=== PATIENT | male | born 1970 | race Caucasian/White ===

== ENCOUNTER 2021-03-29 22:09 | Emergency (ER) | payer BC ==
[2021-03-30] MEDS ORDERED: NA CHLORIDE 0.9% 1,000 ML ONE (00:45)
[2021-03-30 00:53] LABS: Absolute Lymphocytes (CBC) 0.7 K/uL (0.7-4.9); Basophils % 0.4 % (0-1.3); Hematocrit 44.6 % (39.6-49.0); Lymphocytes % 12.4 % (15.3-44.8); MPV 8.2 fL (7.6-11.3); RBC Red Blood Cell Count 4.77 M/uL (4.33-5.43)
--- NOTE | 2021-03-30 00:57 | ER ---
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 Coronavirus screen: Ebola Screen: Patient negative for fever greater than or equal to 101.5 degrees Fahrenheit, and additional compatible Ebola Virus Disease symptoms Patient denies exposure to infectious person. Patient denies travel to an Ebola-affected area in the 21 days before illness onset. No symptoms or risks identified at this time. Initial Sepsis Screen: Does the patient meet any 2 criteria? No. Patient's initial sepsis screen is negative. Does the patient have a suspected source of infection? No. Patient's initial sepsis screen is negative. Risk Assessment: Do you want to hurt yourself or someone else? Patient reports no desire to harm self or others. Onset of symptoms was March 19, 2021. 23:01 Method Of Arrival: Wheelchair iw 23:01 Acuity: YANNI 3 iw Historical: - Allergies: 23:07 No Known Allergies; iw - Home Meds: 23:07 None [Active]; iw - PMHx: 23:07 None; iw - PSHx: 23:07 None; iw - Immunization history:: Adult Immunizations Client reports having NOT received the Covid vaccine. - Social history:: Smoking status: . Screenin:52 Abuse screen: Denies threats or abuse. Nutritional screening: No deficits noted. em Tuberculosis screening: No symptoms or risk factors identified. Fall Risk None identified. Assessment: 03/30 00:30 General: Appears uncomfortable, Behavior is calm, cooperative. Pain: Complains of pain em in everywhere. Neuro: Level of Consciousness is awake, alert, obeys commands, Oriented to person, place, time, situation, Appropriate for age. Cardiovascular: Capillary refill < 3 seconds Patient's skin is warm and dry. Respiratory: Airway is patent Respiratory effort is even, unlabored, Respiratory pattern is regular, symmetrical. Derm: Skin is intact, is healthy with good turgor, Skin is pink, warm \T\ dry. Musculoskeletal: Capillary refill < 3 seconds, Range of motion: intact in all extremities. 01:25 Reassessment: initiated [facility] [place], instructed to reports any chest pain, shortness of em breath or any other weird symptoms, pt verbalizes understanding. 01:40 Reassessment: Patient appears in no apparent distress at this time. No changes from em previously documented assessment. 02:12 Reassessment: Patient appears in no apparent distress at this time. Patient and/or em family updated on plan of care and expected duration. Pain level reassessed. Patient is alert, oriented x 3, equal unlabored respirations, skin warm/dry/pink. 02:30 Reassessment: finished treatment, waiting 1 hour post infusion. em 03:30 Reassessment: Patient appears in no apparent distress at this time. Patient and/or em family updated on plan of care and expected duration. Pain level reassessed. Patient is alert, oriented x 3, equal unlabored respirations, skin warm/dry/pink. no adverse reaction noted. Vital Signs: 03/29 23:01 BP 118 / 80; Pulse 103; Resp 18; Temp 99.5; Pulse Ox 100% on R/A; Weight 102.06 kg; iw Height 5 ft. 11 in. (180.34 cm); 03/30 01:20 BP 92 / 77; Pulse 94; Resp 18; Pulse Ox 95% on R/A; em 01:48 BP 117 / 79; Pulse 71; Resp 18; Pulse Ox 97% on R/A; em 02:12 BP 110 / 72; Pulse 91; Resp 16; Pulse Ox 97% on R/A; em 03/29 23:01 Body Mass Index 31.38 (102.06 kg, 180.34 cm) iw ED Course: 03/29 22:11 Patient arrived in ED. cf2 23:04 Triage completed. iw 23:08 Arm band placed on. iw 23:51 Perez Pan is Attending Physician. sp3 23:52 Sandip Morrison, RN is Primary Nurse. em 23:52 Patient has correct armband on for positive identification. Call light in reach. em 03/30 00:26 Initial lab(s) drawn, by me, sent to lab. Inserted saline lock: 20 gauge in right tt3 antecubital area, using aseptic technique. Blood collected. 01:25 Chest Pa And Lat (2 Views) In Process Unspecified. EDMS 03:29 No provider procedures requiring assistance completed. IV discontinued, intact, em bleeding controlled, No redness/swelling at site. Pressure dressing applied. Administered Medications: 00:24 Drug: NS 0.9% 1000 ml Route: IV; Rate: 1 bolus; Site: right antecubital; em 01:24 Follow up: IV Status: Completed infusion; IV Intake: 1000ml em 01:24 Drug: Zofran (Ondansetron) 4 mg Route: IVP; Site: right antecubital; em 02:51 Follow up: Response: No adverse reaction; Marked relief of symptoms em 01:25 Drug: REGEN-COV Dose Pack 120 mg/mL-120 mg/mL (EUA) 600 mg Route: IV; Rate: calculated em rate; Site: right antecubital; 02:25 Follow up: Response: No adverse reaction; IV Status: Completed infusion; IV Intake: em 260ml Intake: 01:24 IV: 1000ml; Total: 1000ml. em 02:25 IV: 260ml; Total: 1260ml. em Outcome: 00:57 Discharge ordered by sp3 03:29 Discharged to home ambulatory. em 03:29 Condition: stable 03:29 Discharge instructions given to patient, Instructed on discharge instructions, follow up and referral plans. Demonstrated understanding of instructions, follow-up care. 03:37 Patient left the ED. em Signatures: Dispatcher [employer] EDTX Sandip Morrison, RN RN Devika Morris RN RN iw Frazier, Celesta cf2 Tian, Conrad tt3 Perez Pan sp3
--- NOTE | 2021-03-30 00:57 | EDPHYS ---
Physician Documentation [facility] Name: Kyaw Douglas Age: 50 yrs Sex: Male : 1970 Arrival Date: 03/29/2021 Time: 22:11 Bed 17 Private MD: ED Physician Perez Pan HPI: 03/30 00:15 This 50 yrs old Male presents to ER via Wheelchair with complaints of Back sp3 Pain, CHILLS, COVID+. 00:15 50-year-old male with no past medical history presents with chief complaint cough and sp3 shortness of breath with home pulse oxygenation levels in the upper 80s per patient. Patient was diagnosed with COVID-19 7 days ago and has been having symptoms for 10 days. Patient saw his PCP who started him on multivitamin and ivermectin. Patient presents to the ED for continued deterioration. Patient on ROS denies headache, neck pain, chest pain, abdominal pain, nausea, vomiting, diarrhea, loss of taste or smell, syncope, neurological symptoms, rash, any other ROS at this time.. Historical: - Allergies: 03/29 23:07 No Known Allergies; iw - Home Meds: 23:07 None [Active]; iw - PMHx: 23:07 None; iw - PSHx: 23:07 None; iw - Immunization history:: Adult Immunizations Client reports having NOT received the Covid vaccine. - Social history:: Smoking status: . ROS: 03/30 00:18 Eyes: Negative for injury, pain, redness, and discharge, ENT: Negative for injury, sp3 pain, and discharge, Neck: Negative for injury, pain, and swelling, Cardiovascular: Negative for chest pain, palpitations, and edema, Back: Negative for injury and pain, Skin: Negative for injury, rash, and discoloration. Neuro: Negative for headache, weakness, numbness, tingling, and seizure, Hematologic/Lymphatic: Negative for swollen nodes, abnormal bleeding, and unusual bruising. Constitutional: Positive for body aches, chills, fatigue, fever. Abdomen/GI: Positive for nausea and vomiting. All other systems are negative. Exam: 00:18 Head/Face: Normocephalic, atraumatic. Eyes: Pupils equal round and reactive to light, sp3 extra-ocular motions intact. Lids and lashes normal. Conjunctiva and sclera are non-icteric and not injected. Cornea within normal limits. Periorbital areas with no swelling, redness, or edema. ENT: Nares patent. No nasal discharge, no septal abnormalities noted. External auditory canals are clear. Oropharynx with no redness, swelling, or masses, exudates, or evidence of obstruction, uvula midline. Mucous membranes moist. Neck: Trachea midline, no thyromegaly or masses palpated, and no cervical lymphadenopathy. Supple, full range of motion without nuchal rigidity, or vertebral point tenderness. No Meningismus. Chest/axilla: Normal chest wall appearance and motion. Nontender with no deformity. No lesions are appreciated. Cardiovascular: Regular rate and rhythm with a normal S1 and S2. No gallops, murmurs, or rubs. Normal PMI, no JVD. No pulse deficits. Abdomen/GI: Soft, non-tender, with normal bowel sounds. No distension or tympany. No guarding or rebound. No evidence of tenderness throughout. Back: No spinal tenderness. No costovertebral tenderness. Full range of motion. Skin: Warm, dry with normal turgor. Normal color with no rashes, no lesions, and no evidence of cellulitis. Neuro: Awake and alert, GCS 15, oriented to person, place, time, and situation. Cranial nerves II-XII grossly intact. Motor strength 5/5 in all extremities. Sensory grossly intact. Cerebellar exam normal. Normal gait. Psych: Awake, alert, with orientation to person, place and time. Behavior, mood, and affect are within normal limits. 00:18 Constitutional: The patient appears alert, anxious. 00:18 Respiratory: Respirations: normal, Patient with active cough pulse oxygenation levels in the mid 90s. Patient denies any accessory muscles or any other labored breathing.. Vital Signs: 03/29 23:01 BP 118 / 80; Pulse 103; Resp 18; Temp 99.5; Pulse Ox 100% on R/A; Weight 102.06 kg; iw Height 5 ft. 11 in. (180.34 cm); 03/30 01:20 BP 92 / 77; Pulse 94; Resp 18; Pulse Ox 95% on R/A; em 01:48 BP 117 / 79; Pulse 71; Resp 18; Pulse Ox 97% on R/A; em 02:12 BP 110 / 72; Pulse 91; Resp 16; Pulse Ox 97% on R/A; em 03/29 23:01 Body Mass Index 31.38 (102.06 kg, 180.34 cm) iw MDM: 03/29 23:51 Patient medically screened. sp3 03/30 00:22 Data reviewed: vital signs, nurses notes, lab test result(s), radiologic studies. ED sp3 course: To hisPatient does not have an O2 requirement BCD meets criteria for Regeneron treatment. Patient is at high risk for increased pathology from his COVID-19 since he is progressing despite being on other medications. Will administer Regeneron and discharge patient home with continued PCP follow-up.. 01:09 ED course: X-ray demonstrates no significant infiltrate. Patient does have few patchy sp3 opacities consistent with Covid infection.. 08 23:59 Order name: Basic Metabolic Panel sp3 03/29 23:59 Order name: CBC with Diff sp3 03/29 23:59 Order name: CRP sp3 03/29 23:59 Order name: Ferritin; Complete Time: 01:10 sp3 03/29 23:59 Order name: Lactate; Complete Time: 01:10 sp3 03/30 00:00 Order name: Basic Metabolic Panel; Complete Time: 01:10 EDMS 08 23:40 Order name: Chest Pa And Lat (2 Views) EDMS 03/29 23:59 Order name: IV Saline Lock; Complete Time: 00:44 sp3 03/30 00:00 Order name: CBC with Automated Diff; Complete Time: 01:10 EDMS 03/30 00:00 Order name: C-Reactive Protein; Complete Time: 01:10 EDMS 03/29 23:59 Order name: Labs collected and sent; Complete Time: 00:44 sp3 Administered Medications: 00:24 Drug: NS 0.9% 1000 ml Route: IV; Rate: 1 bolus; Site: right antecubital; em 01:24 Follow up: IV Status: Completed infusion; IV Intake: 1000ml em 01:24 Drug: Zofran (Ondansetron) 4 mg Route: IVP; Site: right antecubital; em 02:51 Follow up: Response: No adverse reaction; Marked relief of symptoms em 01:25 Drug: REGEN-COV Dose Pack 120 mg/mL-120 mg/mL (EUA) 600 mg Route: IV; Rate: calculated em rate; Site: right antecubital; 02:25 Follow up: Response: No adverse reaction; IV Status: Completed infusion; IV Intake: em 260ml Disposition Summary: 03/30/21 00:57 Discharge Ordered Location: Home sp3 Condition: Fair sp3 Diagnosis - SARS-associated coronavirus as the cause of diseases classified elsewhere sp3 Followup: sp3 - With: Private Physician - When: - Reason: Re-evaluation by your physician Discharge Instructions: - Discharge Summary Sheet sp3 - COVID-19 sp3 - Things to Know about the COVID-19 Pandemic - [facility] sp3 - 10 Things You Can Do to Manage Your COVID-19 Symptoms at Home - [facility] sp3 Forms: - Medication Reconciliation Form sp3 - Thank You Letter sp3 - Antibiotic Education sp3 - Prescription Opioid Use sp3 Signatures: Dispatcher [employer] Sandip Fischer RN RN Devika Morris RN RN iw Patel, Setul sp3 Corrections: (The following items were deleted from the chart) 00:18 00:15 50-year-old male with no past medical history presents with chief complaint cough sp3 and shortness of breath with home pulse oxygenation levels in the upper 80s per patient. Patient was diagnosed with COVID-19 7 days ago. sp3 01:29 03/29 23:51 Chest Pa And Lat (2 Views)+[email or web address] ordered. EDUT EDMS
[2021-03-30 01:00] LABS: C-Reactive Protein 37.9 mg/L (<3.00); Ferritin 417.1 ng/mL (26-388); Potassium 3.8 mmol/L (3.5-5.1)
[2021-03-30] MEDS ORDERED: CASIRIVIMAB/IMDEVIMAB 10 ML VIAL ONE (01:00)
[2021-03-30] MEDS ORDERED: NA CHLORIDE 0.9% 250 ML ONE (01:00)
[2021-03-30] MEDS ORDERED: ONDANSETRON 4 MG/2 ML VIAL ONE (01:35)
[2021-03-30 03:43] VITALS: TEMP 99.5
[2021-03-30 03:47] VITALS: O2SAT 97
[2021-03-30 03:48] VITALS: BP 110/72
--- NOTE | 2021-03-30 07:47 | RAD REPORT ---
EXAM DESCRIPTION: Cindy Pa And Lat (2 Views)03/30/2021 1:25 am CLINICAL HISTORY: Cough COMPARISON: None FINDINGS: [id number] bilateral pulmonary opacities. The heart is normal size IMPRESSION: Mild to moderate bilateral pulmonary opacities probably pneumonia
== END 2021-03-30 03:37 | disposition home or self-care (01) ==
LOC: ER 22:09
DX: U07.1 COVID-19 (principal)
CPT/HCPCS: 96365; 96361; 85025; 80048; 36415; 83605; 82728; 86140; 71046; 96375; 99284; J7050; J7030; J2405